=== PATIENT | male | born 1990 | race Two or more races ===

== ENCOUNTER 2021-06-22 03:25 | Emergency (ER) | payer MEDICAID, OTHER ==
[~2021-06-22] VITALS: Ht 180.3 cm; Wt 145.1 kg
[2021-06-22] MEDS ORDERED: MORPHINE SULFATE INJECTION 2 MG/ML SYRG IM ONE (05:30)
[2021-06-22 06:08] VITALS: BP 148/78
== END 2021-06-22 06:24 | disposition home or self-care (01) ==
LOC: ER 03:25
DX: L02.212 Cutaneous abscess of back [any part, except buttock and flank] (principal); I10 Essential (primary) hypertension; E11.9 Type 2 diabetes mellitus without complications; E78.5 Hyperlipidemia, unspecified
CPT/HCPCS: 10060; 96372; 99283; J2270